=== PATIENT | female | born 1990 | race American Indian/Alaskan Native ===

== ENCOUNTER 2019-05-11 09:15 | Emergency (ER) | payer OTHER ==
[2019-05-11 09:42] VITALS: BP 119/73
--- NOTE | 2019-05-11 12:56 | Emergency Department Report ---
ED Abdominal Pain HPI - General Chief Complaint: Rectal Pain Stated Complaint: BLOOD IN STOOL/HEMORRHOIDS Time Seen by Provider: 05/11/19 12:49 Source: patient Mode of arrival: Ambulatory Limitations: No Limitations - History of Present Illness Initial Comments: This is a 29-year-old -[place] female who presents to the emergency room with hematochezia and rectal pain for one week. Patient reports a history of hemorrhoids. Patient states they flare last week and she is applying and preparation H hemorrhoid cream and didn't want sitz bath with minimal improvement of symptoms. Patient now reports severe rectal pain, itching, and burning sensation to rectum. She also reports noticing hematochezia this morning with bowel movement.` MD Complaint: abdominal pain Onset/Timin -: week(s) Migration to: no migration Severity: severe Severity scale (0 -10): 10 Quality: aching, burning, other (P rhinitis) Consistency: constant Improves With: nothing Worsens With: bowel movement Associated Symptoms: hematochezia. denies: nausea, vomiting, diarrhea, hematemesis, hematuria - Related Data Previous Rx's Medication Instructions Recorded Last Taken Type Docusate Sodium [Colace CAP] 100 mg PO BID PRN #1 bottle 05/11/19 Unknown Rx Hydrocortisone [Proctosol-Hc 2.5% 28.35 gm RC TID #1 cream.appl 05/11/19 Unknown Rx TOP CREAM] Allergies Allergy/AdvReac Type Severity Reaction Status Date / Time No Known Allergies Allergy Unverified 05/11/19 09:42 ED Review of Systems ROS: Stated complaint: BLOOD IN STOOL/HEMORRHOIDS Other details as noted in HPI Constitutional: denies: chills, fever Respiratory: denies: cough, shortness of breath, wheezing Cardiovascular: denies: chest pain, palpitations Gastrointestinal: hematochezia, other (rectal pain). denies: abdominal pain, nausea, diarrhea Genitourinary: denies: urgency, dysuria, discharge Skin: denies: rash, lesions Neurological: denies: headache, weakness, paresthesias Psychiatric: denies: anxiety, depression ED Past Medical Hx - Past Medical History Previous Medical History?: No - Surgical History Past Surgical History?: No Additional Surgical History: Right wrist. - Medications Home Medications: Home Medications Medication Instructions Recorded Confirmed Last Taken Type Docusate Sodium [Colace CAP] 100 mg PO BID PRN #1 bottle 05/11/19 Unknown Rx Hydrocortisone [Proctosol-Hc 2.5% 28.35 gm RC TID #1 cream.appl 05/11/19 Unknown Rx TOP CREAM] ED Physical Exam - General Limitations: No Limitations General appearance: alert, in no apparent distress - Respiratory Respiratory exam: Present: normal lung sounds bilaterally. Absent: respiratory distress - Cardiovascular Cardiovascular Exam: Present: regular rate, normal rhythm. Absent: systolic murmur, diastolic murmur, rubs, gallop - GI/Abdominal GI/Abdominal exam: Present: soft, normal bowel sounds. Absent: distended, tenderness, guarding, rebound, rigid - Rectal Rectal exam: Present: normal rectal tone, heme (-) stool, hemorrhoids (beefy red external hemorrhoids, ttp). Absent: black stool, bloody stool, mass - Extremities Exam Extremities exam: Present: normal inspection - Neurological Exam Neurological exam: Present: alert, oriented X3, normal gait - Psychiatric Psychiatric exam: Present: normal affect, normal mood - Skin Skin exam: Present: warm, dry, intact, normal color. Absent: rash ED Course Vital Signs 05/11/19 09:42 Temperature 97.8 F Pulse Rate 80 Respiratory 16 Rate Blood Pressure 119/73 [Right] O2 Sat by Pulse 100 Oximetry ED Medical Decision Making - Medical Decision Making This is a 29-year-old female patient that presents with rectal pain x 5 days. Patient's history and exam most consistent with hemorrhoid as cause of their pain. Exam not consistent with thrombosed hemorrhoid. Patients symptoms and exam not typical for other emergent causes of rectal pain such as anorectal abscess, rectal foreign body, anal fissure, anal fistula, proctitis, rectal prolapse. Given NSAIDs while in the ER. A short reports improved pain. Start bowel regimen, topical lidocaine, sitz bath 15min TID and after each bowel movement. Discharged with strict return precautions and follow up with PCP within 24-48 hours for further evaluation. Critical care attestation.: If time is entered above; I have spent that time in minutes in the direct care of this critically ill patient, excluding procedure time. ED Disposition Clinical Impression: Rectal pain, External hemorrhoid Disposition: TO HOME OR SELFCARE Is pt being admited?: No Condition: Stable Instructions: Hemorrhoids (ED) Additional Instructions: Apply topical lidocaine and proctofoam to hemorrhoids as directed. Continue sitz bath every 15 minutes 3 times a day and after each bowel movement. Start taking Tylenol, Motrin, or Excedrin every 8 hours as needed for pain. Follow-up with a primary care doctor in 2-3 days from the list provided below. Prescriptions: Docusate Sodium [Colace CAP] 100 mg PO BID PRN #1 bottle PRN Reason: Constipation Hydrocortisone [Proctosol-Hc 2.5% TOP CREAM] 28.35 gm RC TID #1 cream.appl Referrals: [facility] [Outside] - 3-5 Days [facility] [Outside] - 3-5 Days [facility] [Outside] - 3-5 Days Forms: Work/School Release Form(ED) Time of Disposition: 13:59
[2019-05-11] MEDS ORDERED: IBUPROFEN 800 MG TAB PO ONE (13:16)
== END 2019-05-11 15:21 | disposition home or self-care (01) ==
LOC: ED 09:15
DX: K64.4 Residual hemorrhoidal skin tags (principal)
CPT/HCPCS: 99282